=== PATIENT | male | born 1980 | race Caucasian/White ===

== ENCOUNTER 2016-05-20 14:01 | Emergency (ER) | payer MEDICARE ==
[~2016-05-20] VITALS: Ht 180.3 cm; Wt 100.0 kg
[~2016-05-20 14:01] MED LIST: AMIT50 PO; OXCA600T PO
[2016-05-20 14:02] VITALS: BP 163/100; PULSE 84; RESP 17; TEMP 98.3; O2SAT 98
--- NOTE | 2016-05-20 17:09 | PD ---
HPI Chief Complaint: Headache Time Seen by Provider: 17:09 Travel History International Travel<30 days: No Contact w/Intl Traveler<30days: No Traveled to known affect area: No History of Present Illness HPI 35-year-old male came to the emergency room with history of headache. Patient has been having his headache for past few days and he was seen by his primary care who referred him to a neurologist. He has the appointment with his neurologist next Sunday. Had a CAT scan done last which showed a questionable mass near the third ventricle. Patient had history of hydrocephalus and has a CAN SLIDER shunt. As per the radiologist's report it said that an MRI with contrast could be done in order to further delineate the mass. Based on that patient came to the emergency room since his headache was still persistent and wondering if he could get an MRI. He told me that his neurologist plans to refer him to a neurosurgeon as well. Patient has history of brain tumor in the past that was resected which ultimately led to the hydrocephalus and CAN SLIDER shunt in 2003. Patient had a repeat CAN SLIDER shunt put in in 2006 from a neurosurgeon from [facility] in [place]. The CAT scan did not show any enlarged ventricles and no signs of active hydrocephalus. His vital signs in triage were relatively stable. [facility] Past Medical History Narrative Medical Rest of his past medical, surgical, social and family history was reviewed from the nursing note. Arthritis: No Asthma: No Autoimmune Disease: No Blood Disorders: No Anxiety: Yes Depression: Yes Heart Rhythm Problems: No Cancer: No Cardiovascular Problems: Yes High Cholesterol: No Chemotherapy: No Chest Pain: No Congestive Heart Failure: No COPD: No Cerebrovascular Accident: No Diabetes: No Diminished Hearing: No Endocrine: No GERD: No Glaucoma: No Genitourinary: No Headaches: Yes Hepatitis: No Hiatal Hernia: No Hypertension: Yes Immune Disorder: No Kidney Stones: No Musculoskeletal: No Neurologic: Yes (BENIGN BRAIN TUMOR) Psychiatric: No Reproductive: No Respiratory: No Migraines: No Myocardial Infarction: No Radiation Therapy: Yes (-2004) Renal Failure: No Seizures: Yes Sickle Cell Disease: No Sleep Apnea: No Thyroid Disease: No Ulcer: No PNEUMOCCOCAL Vaccine (Year): 2 Past Surgical History Abdominal Surgery: No AICD: No Arteriovenous Shunt: No Body Medical Devices: 3 CAN SLIDER SHUNTS Cardiac Surgery: No Cholecystectomy: No Ear Surgery: No Endocrine Surgery: No Eye Surgery: No Genitourinary Surgery: Yes (LITHOTRIPSY FOR KIDNEY STONES X 2 , L URETERAL STENT) Gynecologic Surgery: No Insulin Pump: No Joint Replacement: No Neurologic Surgery: Yes (BRAIN TUMOR REMOVED-12/2003 BENIGN, CAN SLIDER SHUNT, STEREOTACTIC RADIOSURGERY 04) Oral Surgery: No Pacemaker: No Thoracic Surgery: No Other Surgery: Yes (X 21 SHUNT REVISIONS TO HEAD, MOST RECENT IN 04/25) Social History Alcohol Use: Yes (SOCIAL) Tobacco Use: No Substance Use: No Allergies-Medications (Allergen,Severity, Reaction): Coded Allergies: Decadron (Verified Allergy, Severe, DIARRHEA,NAUSEA, 06/12/12) Dilantin (Verified Allergy, Severe, Rash/HIVES, 06/12/12) Morphine (Verified Allergy, Severe, POSSIBLE SEIZURES, 06/12/12) Phenergan (Verified Allergy, Severe, Confusion, 06/12/12) Meperidine (Verified Adverse Reaction, Severe, NOT ALLERGIC, TOLDNOT TO TAKE CAUSES SEIZURES, 06/12/12) Comments List of his allergies reviewed from the nursing note. Reported Meds & Prescriptions Reported Meds & Active Scripts Active Reported Elavil 50 Mg Tab (Amitriptyline HCl) 50 Mg Tab 25 Mg PO HS Oxcarbazepine 600 Mg Tab 600 Mg PO TID Narrative Medication List of his home medications reviewed from the nursing note. Review of Systems Except as stated in HPI: all other systems reviewed are Neg Physical Exam Narrative GENERAL: Awake, alert, no obvious distress SKIN: Focused skin assessment warm/dry. HEAD: Atraumatic. Normocephalic. EYES: Pupils equal and round. No scleral icterus. No injection or drainage. ENT: No nasal bleeding or discharge. Mucous membranes pink and moist. NECK: Trachea midline. No JVD. CARDIOVASCULAR: Regular rate and rhythm. No murmur appreciated. RESPIRATORY: No accessory muscle use. Clear to auscultation. Breath sounds equal bilaterally. GASTROINTESTINAL: Abdomen soft, non-tender, nondistended. Hepatic and splenic margins not palpable. MUSCULOSKELETAL: No obvious deformities. No clubbing. No cyanosis. No edema. NEUROLOGICAL: Awake and alert. No obvious cranial nerve deficits. Motor grossly within normal limits. Normal speech. PSYCHIATRIC: Appropriate mood and affect; insight and judgment normal. Data Data Last Documented VS Vital Signs Date Time Temp Pulse Resp B/P Pulse Ox O2 Delivery O2 Flow Rate FiO2 4/1/17 18:20 99 05/20/16 18:00 Room Air 05/20/16 17:57 101 18 143/87 05/20/16 14:02 98.3 [facility] Medical Decision Making Medical Screen Exam Complete: Yes Emergency Medical Condition: Yes Medical Record Reviewed: Yes Differential Diagnosis Chronic headache Narrative Course 5:55 PM as per MRI the CAN SLIDER shunt would need to be turned off and then turned back on and reprogrammed. Patient would require to be monitored for 24 hours by a neurosurgeon for that. Patient does not have a neurosurgeon currently and I discussed the case with the neurosurgeon operations executive Dr. Verdugo. As per him the questionable mass that was described did not require an emergent MRI. He recommended that patient should be followed up by his neurologist as per the appointment and then referred to a neurosurgeon who could get further information records released from [facility] regarding patient's CAN SLIDER shunt mechanics before the MRI. I have explained this to the patient and he is okay with that. I will discharge him home at this point. Procedures EKG Prior to Arrival: No Diagnosis Primary Impression: Cephalgia Qualified Code: R51 - Chronic nonintractable headache, unspecified headache type Referrals: Primary Care Physician 3 days Additional Instructions: Please keep the appointment with the neurologist as made by your primary care. Return to the ER if the condition worsens or any other new concerns. Med/Other Pt SpecificInfo: No Change to Meds Disposition: 01 DISCHARGE HOME Condition: Stable Sarika Mccurdy MD May 20, 2016 17:09
[2016-05-20 17:57] VITALS: BP 143/87; PULSE 101; RESP 18; O2SAT 95
== END 2016-05-20 18:20 | disposition home or self-care (01) ==
LOC: NEPA 14:01
DX: R51 Headache (principal); I10 Essential (primary) hypertension; Z98.2 Presence of cerebrospinal fluid drainage device; F41.9 Anxiety disorder, unspecified
CPT/HCPCS: 99283